=== PATIENT | female | born 2000 | race Caucasian/White ===

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

== ENCOUNTER 2020-04-19 10:21 | Emergency (ER) | payer SELFPAY ==
[~2020-04-19] VITALS: Ht 162.6 cm; Wt 81.6 kg
[2020-04-19 10:27] VITALS: BP 143/94
--- NOTE | 2020-04-19 10:36 | NUR ---
19 Y/O F C/C RIGHT HIP PAIN X 1 WEEK. PER PT BELIEVES PULLED MUSCLE AT WORK. PT PRESENTS PAIN 8/,EUPNIC,AMBULATORY,A/OX4, HAS NOT TAKEN OTC RX. DENIES FALL/TRAUMA INJURY. NKA. HX ANEMIA. NO RX. NO NVD. SIDE RAIL X1.
[2020-04-19 10:49] VITALS: BP 142/72
--- NOTE | 2020-04-19 10:50 | NUR ---
Patient discharged with v/s stable. Written and verbal after care instructions given and explained. Patient verbalized understanding. Ambulatory with steady gait. All questions addressed prior to discharge. Advised to follow up with PMD.
== END 2020-04-19 10:50 | disposition home or self-care (01) ==
LOC: EDSEX 10:21 → MED 10:21
DX: S73.101A Unspecified sprain of right hip, initial encounter (principal); X50.0XXA Overexertion from strenuous movement or load, initial encounter; Y93.89 Activity, other specified; Y92.89 Other specified places as the place of occurrence of the external cause; Y99.8 Other external cause status
CPT/HCPCS: 81002; 81025; 99282